=== PATIENT | male | born 1960 | race Two or more races ===

== ENCOUNTER 2023-11-07 09:38 | Emergency (ER) | payer OTHER ==
[~2023-11-07] VITALS: Ht 177.8 cm; Wt 77.1 kg
[2023-11-07] MEDS ORDERED: CEFTRIAXONE SODIUM 2,000 MG VIAL IV ONE (10:30)
== END 2023-11-07 12:29 | disposition home or self-care (01) ==
LOC: ER 09:38
DX: S61.452A Open bite of left hand, initial encounter (principal); S61.451A Open bite of right hand, initial encounter; W54.0XXA Bitten by dog, initial encounter; Y93.89 Activity, other specified; Y92.413 State road as the place of occurrence of the external cause
CPT/HCPCS: 73130; 96365; 99283; J0696